=== PATIENT | male | born 1995 | race Caucasian/White ===

== ENCOUNTER 2017-01-07 00:23 | Emergency (ER) | payer BC ==
[~2017-01-07] VITALS: Ht 185.4 cm; Wt 83.4 kg
[2017-01-07 00:31] VITALS: TEMP 36.6; O2SAT 99; Ht 185.4 cm; Wt 83.4 kg
[2017-01-07 00:55] LABS: BUN/CREATININE RATIO 6.5 (10-20); CREATININE 1.3 mg/dl (0.60-1.40); POTASSIUM 3.5 mmol/L (3.5-5.1)
--- NOTE | 2017-01-07 01:03 | EMERGENCY ROOM VISIT NOTE ---
History Report prepared by Saige: El Ortega Under the Supervision of: Dr. Aspen Mars D.O. First contact with patient: 00:25 Chief Complaint: ALCOHOL OVERDOSE Stated Complaint: ALCOHOL OVERDOSE Nursing Triage Summary: Patient arrived handcuffed with police and BLS for evaluation of alcohol overdose. Patient was found sleeping on the ground next to a car. When police woke him, he tried crawling into the car. EMS was called, patient had periods of combativeness en route to ER. Patient cooperative upon arrival to ED. History of Present Illness The patient is a 21 year old male who presents to the Emergency Room for an alcohol overdose starting prior to arrival. Per the EMS, the patient was found unresponsive, and then once they got there has crawling under different cars. The patient then became combative and agitated. He states that he has history of exercise induced asthma. History is limited secondary to intoxication. Source of History: patient History Limited By: intoxication Onset: prior to arrival Position: other (global) Quality: other (alcohol overdose) Review of Systems HPI is limited secondary to intoxication. Past Medical & Surgical Medical Problems: (1) Asthma, exercise induced Family History Limited secondary to intoxication Social History Smoking Status: Never Smoker Alcohol Use: heavy Occupation Status: [employer] student Current/Historical Medications No Active Prescriptions or Reported Meds Allergies Coded Allergies: No Known Allergies (Unverified , 01/07/17) Physical Exam Vital Signs Date Time Temp Pulse Resp B/P (MAP) Pulse Ox O2 Delivery O2 Flow Rate FiO2 01/07/17 06:14 90 18 146/73 98 01/07/17 04:11 88 01/07/17 03:49 88 18 127/73 98 Room Air 01/07/17 00:37 115 01/07/17 00:31 99 Room Air 01/07/17 00:31 36.6 109 18 162/88 99 Room Air 01/07/17 00:31 99 Room Air Physical Exam HEENT: Head - normocephalic and atraumatic Pupils are equal, round, and reactive to light. Extraocular eye muscles are intact, and sclera are injected. Nose - Thick mucous drainage from the nose. Moist nasal mucosa. Mouth - moist buccal mucosa. Oropharynx is nonerythematous and there is no tonsillar exudate or edema noted. Neck: Supple; no JVD, nuchal rigidity, cervical lymphadenopathy. Heart: Tachycardic rate and regular rhythm. There is a normal S1 and S2 with no murmurs, clicks, or gallops appreciated. Lungs: Clear to auscultation bilaterally with no wheezes, rales, or rhonchi. Abdomen: Soft, completely nontender, nondistended, with good bowel sounds. There are no palpable pulsatile masses or hepatosplenomegaly. There is no guarding, rigidity, or rebound noted. Extremities: No evidence of cyanosis, clubbing, or edema. There are easily palpable peripheral pulses. Skin: Diaphoretic, warm with good turgor and no rashes. Medical Decision & Procedures Laboratory Results 01/07/17 00:29 Test 01/07/17 00:29 Anion Gap 15.0 mmol/L (3-11) Est Creatinine Clear Calc Drug Dose 102.4 ml/min Estimated GFR () 91.0 Estimated GFR (Non- 78.5 BUN/Creatinine Ratio 6.5 (10-20) Calcium Level 9.0 mg/dl (8.5-10.1) Ethyl Alcohol mg/dL 239.0 mg/dl (0-3) Laboratory results per my review. ED Course 0025: Past medical records reviewed. The patient was evaluated in room C2. The police removed the handcuffs. A complete history and physical exam was performed. He was placed in the prone position to avoid aspiration. He was observing the director of cardiac rehabilitation and pulse oximeter. Labs were drawn as above. 0116: I reevaluated the patient, and he was sitting up on the side of the bed. 0253: I reevaluated the patient, and he was sleeping and hemodynamically stable 0530: Upon reevaluation, the patient was feeling better. I discussed findings and results with him. He verbalized agreement of the treatment plan. He was discharged home. Medical Decision The patient is a 21 year old male who presents to the ED for an alcohol overdose. Differential diagnosis includes alcohol overdose, drug intoxication, hypoglycemia, head injury, asthma attack. Lab results show: Alcohol 239, glucose of 119, and sodium slightly elevated at 146. This is a 21-year-old male patient brought in by police and EMS after consuming too much alcohol. The patient became combative with EMS and police. He had to be restrained. He denies any significant injury or trauma. The patient was cooperative for us here in the emergency department. He was allowed to sober up. I reviewed the risks of such excessive alcohol consumption. I encouraged him to rest today and take plenty of clear liquids. Medication Reconcilliation Current Medication List: was personally reviewed by me Blood Pressure Screening Patient's blood pressure: Elevated blood pressure Blood pressure disposition: Elevated BP felt to be situational Impression Primary Impression: Alcohol overdose Scribe Attestation The scribe's documentation has been prepared under my direction and personally reviewed by me in its entirety. I confirm that the note above accurately reflects all work, treatment, procedures, and medical decision making performed by me. Departure Information Dispostion Home / Self-Care Prescriptions No Active Prescriptions or Reported Meds Forms HOME CARE DOCUMENTATION FORM, IMPORTANT VISIT INFORMATION Patient Instructions ED Overdose Alcohol, [facility]: [employer] Students and Alcohol Related Visits, My [facility] Additional Instructions Rest. Take plenty of clear liquids Avoid such excessive alcohol use in the future Take tylenol for headaches Problem Qualifiers Primary Impression: Alcohol overdose Encounter type: initial encounter Injury intent: accidental or unintentional Qualified Codes: T51.91XA - Toxic effect of unspecified alcohol , accidental (unintentional), initial encounter
[2017-01-07 06:14] VITALS: BP 146/73; PULSE 90; O2SAT 98
== END 2017-01-07 06:09 | disposition home or self-care (01) ==
LOC: C.EDC 00:25
DX: T51.91XA Toxic effect of unspecified alcohol, accidental (unintentional), initial encounter (principal); J45.909 Unspecified asthma, uncomplicated

== ENCOUNTER 2017-06-03 04:09 | Emergency (ER) | payer BC ==
[~2017-06-03] VITALS: Ht 185.4 cm; Wt 101.3 kg
--- NOTE | 2017-06-03 04:31 | EMERGENCY ROOM VISIT NOTE ---
History Report prepared by Saige: Shubham Zhao Under the Supervision of: Dr. Aspen Mars D.O. First contact with patient: 04:12 Chief Complaint: ALCOHOL OVERDOSE Stated Complaint: ALCOHOL History of Present Illness HPI limited due to altered mental status secondary to alcohol intoxication. The patient is a 22 year old male who presents to the Emergency Room via EMS with complaints of a recent alcohol overdose. EMS states that the patient pulled his pants down and pooped in the [employer] [facility]. Patient states he drank "birddog". Patient denies a history of health problems. He denies taking any daily medications. 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 Source of History: patient History Limited By: AMS Review of Systems ROS limited secondary due to alcohol intoxication. Past Medical & Surgical Medical Problems: (1) Asthma, exercise induced Social History Smoking Status: Never Smoker Alcohol Use: heavy Drug Use: none Occupation Status: [employer] student Current/Historical Medications No Active Prescriptions or Reported Meds Allergies Coded Allergies: No Known Allergies (Unverified , 06/03/17) Physical Exam Vital Signs Date Time Temp Pulse Resp B/P (MAP) Pulse Ox O2 Delivery O2 Flow Rate FiO2 06/03/17 06:27 101 20 132/83 97 06/03/17 05:59 105 22 95 06/03/17 05:54 101 17 96 06/03/17 05:39 110 97 06/03/17 05:24 105 26 96 06/03/17 05:09 108 13 98 06/03/17 04:54 109 25 98 06/03/17 04:49 100 Room Air 06/03/17 04:49 36.8 109 18 127/94 100 Room Air 06/03/17 04:39 107 17 99 Room Air 06/03/17 04:30 108 06/03/17 04:27 127/94 Physical Exam General: Patient is slightly uncooperative, slurred speech, and smells of alcohol HEENT: Head - normocephalic and atraumatic Pupils are 8mm, equal, round, and slightly unreactive to light. Extraocular eye muscles are intact, and sclera are anicteric. Nose - moist nasal mucosa without discharge. Mouth - moist buccal mucosa. Oropharynx is nonerythematous and there is no tonsillar exudate or edema noted. Neck: Supple; no JVD, nuchal rigidity, cervical lymphadenopathy. Heart: Regular rate and rhythm. There is a normal S1 and S2 with no murmurs, clicks, or gallops appreciated. Lungs: Clear to auscultation bilaterally with no wheezes, rales, or rhonchi. Abdomen: Soft, completely nontender, nondistended, with good bowel sounds. There are no palpable pulsatile masses or hepatosplenomegaly. There is no guarding, rigidity, or rebound noted. Extremities: No evidence of cyanosis, clubbing, or edema. There are easily palpable peripheral pulses. Skin: warm and dry with good turgor and no rashes. Medical Decision & Procedures Laboratory Results 06/03/17 04:26 Test 06/03/17 04:26 Anion Gap 7.0 mmol/L (3-11) Est Creatinine Clear Calc Drug Dose 116.9 ml/min Estimated GFR () 94.8 Estimated GFR (Non- 81.8 BUN/Creatinine Ratio 10.3 (10-20) Calcium Level 8.9 mg/dl (8.5-10.1) Ethyl Alcohol mg/dL 250.0 mg/dl (0-3) Laboratory results per my review. ED Course 0421: The patient was evaluated in room A11. A complete history and physical examination were performed. Nursing notes and previous electronic medical records were reviewed. The patient was placed on the ekg monitor and pulse oximeter. Laboratory studies were drawn as above. 0500: Patient is trying to call a sober friend to give him a ride home. He remains fully awake and easily able to communicate while here in the emergency room. 0625: Upon reevaluation, patient has found a sober ride home. I discussed findings and results with him. He verbalized agreement of the treatment plan. He was discharged home. Medical Decision The patient is a 22 year old male who presents to the ED with a recent alcohol overdose. Differential diagnosis includes alcohol overdose, drug intoxication, hypoglycemia, and head injury. Lab results show alcohol = 250, glucose = 109, normal renal function, potassium slightly low at 1.4. This is a 22-year-old male patient was brought to the emergency department after consuming too much alcohol. His vitals were stable. No signs of trauma. He was cooperative throughout his stay here in the ER. I've encouraged him to avoid such excessive alcohol use in the future. Medication Reconcilliation Current Medication List: was personally reviewed by me Blood Pressure Screening Patient's blood pressure: Normal blood pressure Blood pressure disposition: Did not require urgent referral Impression Primary Impression: Alcohol overdose Scribe Attestation The scribe's documentation has been prepared under my direction and personally reviewed by me in its entirety. I confirm that the note above accurately reflects all work, treatment, procedures, and medical decision making performed by me. Departure Information Dispostion Home / Self-Care Prescriptions No Active Prescriptions or Reported Meds Referrals No Doctor, Assigned (PCP) Forms HOME CARE DOCUMENTATION FORM, IMPORTANT VISIT INFORMATION Patient Instructions [facility] Additional Instructions Avoid such excessive alcohol use in the future Rest. juanito a bland diet and plenty of clear liquids Use tylenol for headaches Problem Qualifiers Primary Impression: Alcohol overdose Encounter type: initial encounter Injury intent: accidental or unintentional Qualified Codes: T51.91XA - Toxic effect of unspecified alcohol , accidental (unintentional), initial encounter
[2017-06-03 04:49] VITALS: TEMP 36.8; O2SAT 100; Ht 185.4 cm; Wt 101.3 kg
[2017-06-03 04:58] LABS: CALCIUM 8.9 mg/dl (8.5-10.1); CREATININE 1.25 mg/dl (0.60-1.40); POTASSIUM 3.4 mmol/L (3.5-5.1)
[2017-06-03 06:27] VITALS: BP 132/83; PULSE 101; O2SAT 97
== END 2017-06-03 06:30 | disposition home or self-care (01) ==
LOC: EDBD 04:09 → C.ED 04:10 → C.EDA 06:30
DX: T51.0X1A Toxic effect of ethanol, accidental (unintentional), initial encounter (principal)